=== PATIENT | female | born 1960 | race Caucasian/White ===

== ENCOUNTER 2016-07-21 14:52 | Emergency (ER) | payer BC, OTHER | END 2016-07-21 16:22 | disposition left against medical advice (07) | LOC: ER 14:52 | DX: R11.10 Vomiting, unspecified (principal); R10.9 Unspecified abdominal pain; Z53.21 Procedure and treatment not carried out due to patient leaving prior to being seen by health care provider ==

== ENCOUNTER → 2018-08-10 | Outpatient (CLI) | payer OTHER ==
--- NOTE | 2018-08-10 12:37 | KCIC ---
Abdominal ultrasound dated 08/10/2018. No comparison available. Clinical data indication: Left upper quadrant pain. FINDINGS: Liver is of diffuse increased echogenicity and appears somewhat enlarged. No apparent hepatic mass. Intrahepatic and extra hepatic biliary tree normal in caliber. The common bile duct measures 3 mm. Gallbladder normal in size. There is diffuse gallbladder wall thickening measuring up to 5 mm thickness. No pericholecystic fluid. No shadowing stones. Right kidney measures 12.6 cm in length. Left kidney measures 10.9 cm in length. No hydronephrosis. There is a small exophytic cyst at the lower pole right kidney measuring up to 2.6 cm in size. Spleen is homogeneous in echogenicity and measures 12.3 cm longitudinal dimension. Limited visualized portions of pancreas aorta and IVC unremarkable. No significant ascites. IMPRESSION: 1. Diffuse increased echogenicity of the liver could be related to hepatocellular disease and/or fatty infiltration. The liver is somewhat enlarged. 2. Diffuse wall thickening of the gallbladder with no evidence of cholelithiasis or pericholecystic fluid. This is nonspecific and could be a manifestation of hepatocellular disease. Recommend laboratory correlation. 3. Small right renal cyst. 4. No acute findings. Electronically signed by: Jevon Smiley MD (08/10/2018 12:34 PM) [id number]
== END | disposition home or self-care (01) ==
LOC: KCIC US 07:58
PROVIDERS: ATTEND Family Medicine
DX: N28.1 Cyst of kidney, acquired (principal)
CPT/HCPCS: 76700